=== PATIENT | female | born 1965 | race African-American/Black ===

== ENCOUNTER 2017-11-04 12:34 | Emergency (ER) | payer OTHER ==
[~2017-11-04] VITALS: Ht 180.3 cm; Wt 159.0 kg
[2017-11-04 12:57] VITALS: BP 149/73; PULSE 92; RESP 16; TEMP 98.5; O2SAT 98
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
[2017-11-04] MEDS ORDERED: BACL10TA PO (14:31)
[2017-11-04] MEDS ORDERED: NAPR500T2 PO (14:31)
== END 2017-11-04 15:20 | disposition home or self-care (01) ==
LOC: PHEFT 12:34
DX: S39.012A Strain of muscle, fascia and tendon of lower back, initial encounter (principal); T14.8XXA Other injury of unspecified body region, initial encounter; W19.XXXA Unspecified fall, initial encounter; Y92.811 Bus as the place of occurrence of the external cause
CPT/HCPCS: 72100; 99283

== ENCOUNTER 2018-03-05 12:50 | Emergency (ER) | payer OTHER ==
[~2018-03-05] VITALS: Ht 180.3 cm; Wt 150.0 kg
[~2018-03-05 12:50] MED LIST: BACL10TA PO; NAPR500T2 PO
[2018-03-05 13:00] VITALS: BP 153/82; PULSE 91; RESP 18; TEMP 99.1; O2SAT 95
[2018-03-05] MEDS ORDERED: NYSTCRE29 TOPICAL (13:45)
--- NOTE | 2018-03-05 13:46 | PD ---
HPI Chief Complaint: Skin Problem Time Seen by Provider: 13:36 Travel History International Travel<30 days: No Contact w/Intl Traveler<30days: No Traveled to known affect area: No History of Present Illness HPI 53-year-old female presents emergency department for evaluation of itching and scaling of her hands bilaterally that is been persistent for approximately 2 weeks. Says that initially the scaling started on the lower part of her palms but has since spread to her fingers. Says that it has a "deep itch to the bone ". Denies pain. Denies new soaps, lotions, travel, foods. 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 She denies fevers or chills. Denies history of diabetes or other immunocompromised state. She has no other complaints today. PFSH Past Medical History Cardiovascular Problems: Yes (HTN) Hypertension: Yes Immunizations Current: Yes (STATES MANY IMMUNIZATIONS WHEN BECAME [place] CITIZ[place]) ?: Not Past Surgical History Hysterectomy: Yes Other Surgery: Yes (SPINAL FUSION) Social History Alcohol Use: Yes (OCCASIONAL WINE) Tobacco Use: No Substance Use: No Allergies-Medications (Allergen,Severity, Reaction): Coded Allergies: No Known Allergies (Unverified , 03/05/18) Reported Meds & Prescriptions Reported Meds & Active Scripts Active Nystatin-Triamcinolone 100,000-0.1 Unit/Gm Cream 1 Applic TOPICAL BID Baclofen 10 Mg Tab 10 Mg PO Q8HR 10 Days Naproxen 500 Mg Tab 500 Mg PO BID 10 Days Review of Systems Except as stated in HPI: all other systems reviewed are Neg Physical Exam Narrative GENERAL: Well-nourished, well-developed patient, in NAD SKIN: Focused skin assessment warm/dry. Bilateral hands-dorsal and palmar aspect with small, round skin colored lesions with central clearing. No obvious excoriations. No edema or erythema. Neurovascularly intact. No obvious nail involvement HEAD: Normocephalic. Atraumatic. EYES: No scleral icterus. No injection or drainage. THROAT: Airway is patent. NECK: Supple, trachea midline. No JVD. No meningismus. CARDIOVASCULAR: Regular rate and rhythm without murmurs, gallops, or rubs. RESPIRATORY: Breath sounds equal bilaterally. No accessory muscle use. No wheezes, rales, or rhonchi MUSCULOSKELETAL: No cyanosis, or edema. BACK: Nontender without obvious deformity. No CVA tenderness. Data Data Last Documented VS Vital Signs Date Time Temp Pulse Resp B/P (MAP) Pulse Ox O2 Delivery O2 Flow Rate FiO2 03/05/18 13:00 99.1 91 18 153/82 (105) 95 MDM Medical Decision Making Medical Screen Exam Complete: Yes Emergency Medical Condition: Yes Differential Diagnosis Bilateral hands contact dermatitis, Shelby infection, cellulitis, erysipelas Narrative Course 53-year-old female presents emergency department for evaluation of itching and scaling of her hands bilaterally that is been persistent for approximately 2 weeks. Says that initially the scaling started on the lower part of her palms but has since spread to her fingers. Says that it has a "deep itch to the bone ". Denies pain. Denies new soaps, lotions, travel, foods. 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 She denies fevers or chills. Denies history of diabetes or other immunocompromised state. She has no other complaints today. Vital signs stable. Physical exam findings consistent with Shelby of the hands. Triamcinolone nystatin cream prescribed. Advised that she should follow-up with her primary care physician. Avoid contact with oils and other substances to contribute to her symptoms. Consider dermatology if her symptoms persist. 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 Recommend you continue gloves at work and avoid other exposures. Consider follow-up with a preschool program director if your symptoms persist. Follow-up with her primary care physician within 1 week. Scripts Nystatin-Triamcinolone (Nystatin-Triamcinolone) 100,000-0.1 Unit/Gm Cream 1 APPLIC TOPICAL BID for Infection, #30 GM 0 Refills Prov: Rubi Valencia MD 03/05/18 Disposition: 01 DISCHARGE HOME Condition: Stable Shayna Samaniego Mar 05, 2018 13:46
== END 2018-03-05 14:05 | disposition home or self-care (01) ==
LOC: PHED 12:50
DX: B37.2 Candidiasis of skin and nail (principal); I10 Essential (primary) hypertension
CPT/HCPCS: 99283